=== PATIENT | female | born 1950 | race Caucasian/White ===

== ENCOUNTER → 2017-02-26 | Outpatient (CLI) | payer MEDICARE, BC ==
[~2017-02-26] MED LIST: ACET-1757 PO; ALBU1.25 NEB; ALPR-475 PO; ASPI-496 PO; ATEN25TA PO; AZIT-14 PO; AZIT500T4 PO; BACL-19 PO; BUPR1FIL PO; BUSP10TA PO; CEFD300C2 PO; CEPH-368 PO; CLON1TAB PO; DEXT10TA7 PO; DIVA250T6 PO; DULO60CA7 PO; ENOX40SY4 SQ; ESCI10TA PO; FLUT1DIS3 INH; GABA-827 PO; GABA300C10 PO; GABA600T2 PO; GUAI600T53 PO; HYDR-3138 PO; HYDR-3144 PO; HYDR40TA PO; HYDR50CA PO; HYDR50TA13 PO; LEVO750T6 PO; METH-356 PO; METO25TA35 PO; METR500T PO; METR500T4 PO; MONT10TA9 PO; MORP15TA39 PO; MORP30CA15 PO; NAPR250T PO; NICO1PAT4 TD; OLAN2.5T5 PO; OMEP-110 PO; OMEP20CA9 PO; ONDA4TAB7 PO; OXYC-302 PO; PARO20TA55 PO; PHOS250T3 PO; POLY17PO5 PO; PRED10TA PO; PROP20TA PO; RISP0.5T3 PO; RISP1TAB3 PO; RISP1TAB45 PO; RISP2TAB PO; SERT50TA PO; SERT50TA5 PO; SIMV20TA PO; SULF1TAB24 PO; SULF1TAB3 PO; TRAM-28 PO; TRAZ50TA18 PO
[2017-02-26 14:36] LABS: HEMOGLOBIN 15.9 g/dL (11.7-16.4)
[2017-02-26 14:46] LABS: ASPARTATE AMINO TRANSFERASE 20 U/L (15-37); BLOOD UREA NITROGEN 18 mg/dL (7-18)
[2017-02-26 14:56] LABS: C-REACTIVE PROTEIN, QUANT 0.02 mg/dL (0.02-0.49)
[2017-02-27 12:00] LABS: RHEUMATOID FACTOR SCREEN POSITIVE (NEGATIVE)
[2017-02-27 15:01] LABS: ANA SCREEN POSITIVE (Negative)
== END | disposition home or self-care (01) ==
LOC: CFH 13:30
PROVIDERS: ATTEND Family Medicine
DX: M79.89 Other specified soft tissue disorders (principal); R63.5 Abnormal weight gain; R60.9 Edema, unspecified
CPT/HCPCS: 36415; 80053; 84439; 84443; 84480; 85025; 85651; 86038; 86039; 86140; 86430; 86431

== ENCOUNTER 2017-04-06 15:14 | Inpatient (IN) | payer MEDICARE, BC ==
[~2017-04-06] VITALS: Ht 157.5 cm; Wt 97.1 kg
[~2017-04-06 15:14] MED LIST changes: -AZIT-14 PO; +AZIT250T89 PO; -AZIT500T4 PO; +AZIT500T77 PO; -CEFD300C2 PO; +CEFD300C37 PO
[2017-04-06] MEDS ORDERED: SODIUM CHLORIDE 0.9% 1,000 ML IV ONE ×2 (15:26→17:13)
[2017-04-06] MEDS ORDERED: ONDANSETRON 2MG/ML, 2ML IVPush ONE (15:30)
[2017-04-06] MEDS ORDERED: SODIUM CHLORIDE FLUSH 10ML SYR IVF ONE (15:30)
[2017-04-06] MEDS ORDERED: HYDROmorphone 1 MG/ML, 1ML ONE ×2 (15:42→16:23)
[2017-04-06] MEDS ORDERED: ONDANSETRON 2MG/ML, 2ML ONE (15:42)
[2017-04-06] MEDS: HYDROmorphone 1 MG/ML, 1ML IVPush PRN ×2 (15:48→17:05)
[2017-04-06] MEDS ORDERED: PLEASE ENTER HEIGHT AND WEIGHT MC SCH (16:00)
[2017-04-06 16:28] LABS: ASPARTATE AMINO TRANSFERASE 23 U/L (15-37); BLOOD UREA NITROGEN 15 mg/dL (7-18)
[2017-04-06] MEDS ORDERED: OXCA600T PO (16:36)
[2017-04-06] MEDS ORDERED: PRED2.5T PO (16:36)
[2017-04-06] MEDS ORDERED: GABA300C10 PO (16:36)
[2017-04-06] MEDS ORDERED: ZALE10CA PO (16:36)
[2017-04-06 16:51] LABS: IS PT STATUS REG ER OR PRE ER? YES
[2017-04-06] MEDS ORDERED: LORazepam 2 MG/ML, 1ML ONE (17:13)
[2017-04-06] MEDS ORDERED: LORazepam 2 MG/ML, 1ML IVPush ONE (17:30)
[2017-04-06] MEDS ORDERED: CEFTRIAXONE 1,000 MG in SODIUM CHLORIDE 0.9% 50 ML IVPB ONE (17:30)
[2017-04-06] MEDS ORDERED: SODIUM CHLORIDE FLUSH 10ML SYR IVF PRN (17:30)
[2017-04-06] MEDS ORDERED: HYDROcodone/APAP 10/325 MG TABLET PO PRN (18:00)
[2017-04-06] MEDS ORDERED: BISACODYL 10 MG SUPP PR PRN (18:30)
[2017-04-06] MEDS ORDERED: POLYETHYLENE GLYCOL 17 GM PACKET PO PRN (18:30)
[2017-04-06] MEDS ORDERED: ONDANSETRON 2MG/ML, 2ML IVPush PRN (18:30)
[2017-04-06] MEDS: SODIUM CHLORIDE 0.9% 1,000 ML IV SCH (18:53)
[2017-04-06 19:07] VITALS: BP 179/145
[2017-04-06 19:12] VITALS: BP 170/120
[2017-04-06] MEDS ORDERED: LABETALOL 5MG/ML, 20ML IVPush STA (19:21)
[2017-04-06] MEDS: HEPARIN 5,000 UNITS/ML, 1ML SQ SCH (19:56)
[2017-04-06] MEDS: NICOTINE 7 MG/24 HR PATCH.TD24 TD SCH (19:57)
[2017-04-06] MEDS: AZITHROMYCIN 500 MG in SODIUM CHLORIDE 0.9% 250 ML IV SCH (19:57)
[2017-04-06 20:05] VITALS: BP 136/80
[2017-04-06] MEDS ORDERED: LABETALOL 5MG/ML, 20ML IVPush PRN (20:30)
[2017-04-06] MEDS: hydrOXyzine 50MG TABLET PO SCH (21:00)
[2017-04-06] MEDS: GABAPENTIN 300 MG CAPSULE PO SCH (21:04)
[2017-04-06] MEDS: BUSPIRONE 10 MG TABLET PO SCH (21:05)
[2017-04-06] MEDS: SIMVASTATIN 20 MG TABLET PO SCH (21:05)
[2017-04-06] MEDS: OXCARBAZEPINE 150 MG TABLET PO SCH (21:06)
[2017-04-07 01:00] VITALS: BP 147/84
[2017-04-07] MEDS ORDERED: HYDROcodone/APAP 5/325 TABLET PO PRN (01:00)
[2017-04-07] MEDS: HYDROcodone/APAP 10/325 MG TABLET PO PRN ×3 (02:58→19:51)
[2017-04-07] MEDS: ASPIRIN 81 MG TABLET EC PO SCH (05:13)
[2017-04-07] MEDS: hydrOXyzine 50MG TABLET PO SCH ×4 (05:13→19:50)
[2017-04-07] MEDS: HEPARIN 5,000 UNITS/ML, 1ML SQ SCH ×3 (05:13→19:50)
[2017-04-07] MEDS: SODIUM CHLORIDE 0.9% 1,000 ML IV SCH ×2 (05:14→14:03)
[2017-04-07 05:23] LABS: BLOOD UREA NITROGEN 12 mg/dL (7-18)
[2017-04-07 05:28] LABS: ASPARTATE AMINO TRANSFERASE 26 U/L (15-37)
[2017-04-07 07:57] VITALS: BP 144/85
[2017-04-07] MEDS: BUSPIRONE 10 MG TABLET PO SCH ×3 (09:49→19:52)
[2017-04-07] MEDS: GABAPENTIN 300 MG CAPSULE PO SCH ×2 (09:49→19:52)
[2017-04-07] MEDS: OXCARBAZEPINE 150 MG TABLET PO SCH ×2 (09:50→19:51)
[2017-04-07] MEDS: SENNA/DOCUSATE TABLET PO SCH (09:50)
[2017-04-07 14:00] VITALS: BP 147/84
[2017-04-07] MEDS ORDERED: CEFTRIAXONE 1,000 MG in SODIUM CHLORIDE 0.9% 50 ML IV SCH (17:30)
[2017-04-07] MEDS: NICOTINE 7 MG/24 HR PATCH.TD24 TD SCH (17:33)
[2017-04-07] MEDS: ACETAMINOPHEN 325 MG TABLET PO PRN (17:33)
[2017-04-07 19:44] VITALS: BP 137/82
[2017-04-07] MEDS: AZITHROMYCIN 500 MG in SODIUM CHLORIDE 0.9% 250 ML IV SCH (19:50)
[2017-04-07] MEDS: SIMVASTATIN 20 MG TABLET PO SCH (19:52)
[2017-04-08] MEDS: SODIUM CHLORIDE 0.9% 1,000 ML IV SCH (00:03)
[2017-04-08] MEDS: HYDROcodone/APAP 10/325 MG TABLET PO PRN ×3 (00:03→19:55)
[2017-04-08 01:36] VITALS: BP 147/83
[2017-04-08] MEDS: ACETAMINOPHEN 325 MG TABLET PO PRN (02:35)
[2017-04-08] MEDS: ZOLPIDEM 5MG TABLET PO PRN (03:13)
[2017-04-08] MEDS: HEPARIN 5,000 UNITS/ML, 1ML SQ SCH ×3 (05:35→19:53)
[2017-04-08] MEDS: hydrOXyzine 50MG TABLET PO SCH ×4 (05:35→19:55)
[2017-04-08] MEDS: ASPIRIN 81 MG TABLET EC PO SCH (05:35)
[2017-04-08 07:35] VITALS: BP 153/88
[2017-04-08] MEDS: OXCARBAZEPINE 150 MG TABLET PO SCH ×2 (08:18→19:54)
[2017-04-08] MEDS: BUSPIRONE 10 MG TABLET PO SCH ×3 (08:18→19:54)
[2017-04-08] MEDS: GABAPENTIN 300 MG CAPSULE PO SCH ×2 (08:18→19:54)
[2017-04-08] MEDS: SENNA/DOCUSATE TABLET PO SCH (08:18)
[2017-04-08 13:34] VITALS: BP 140/81
[2017-04-08] MEDS ORDERED: CEFTRIAXONE 1,000 MG in SODIUM CHLORIDE 0.9% 100 ML IV SCH (14:40)
[2017-04-08] MEDS: NICOTINE 7 MG/24 HR PATCH.TD24 TD SCH (17:16)
[2017-04-08 19:22] VITALS: BP 149/86
[2017-04-08] MEDS: AZITHROMYCIN 500 MG in SODIUM CHLORIDE 0.9% 250 ML IV SCH (19:53)
[2017-04-08] MEDS: SIMVASTATIN 20 MG TABLET PO SCH (19:54)
[2017-04-09 01:26] VITALS: BP 132/84
[2017-04-09] MEDS: ACETAMINOPHEN 325 MG TABLET PO PRN ×2 (03:32→09:17)
[2017-04-09] MEDS: ZOLPIDEM 5MG TABLET PO PRN (03:32)
[2017-04-09] MEDS: HEPARIN 5,000 UNITS/ML, 1ML SQ SCH ×2 (03:32→12:00)
[2017-04-09] MEDS: hydrOXyzine 50MG TABLET PO SCH ×2 (04:52→11:16)
[2017-04-09] MEDS: HYDROcodone/APAP 10/325 MG TABLET PO PRN ×2 (04:52→11:16)
[2017-04-09] MEDS: ASPIRIN 81 MG TABLET EC PO SCH (04:52)
[2017-04-09 05:26] LABS: ASPARTATE AMINO TRANSFERASE 26 U/L (15-37); BLOOD UREA NITROGEN 6 mg/dL (7-18)
[2017-04-09] MEDS ORDERED: OMEPRAZOLE 20 MG CAPSULE.DR PO SCH (09:00)
[2017-04-09 09:03] VITALS: BP 135/82
[2017-04-09] MEDS: OXCARBAZEPINE 150 MG TABLET PO SCH (09:13)
[2017-04-09] MEDS: BUSPIRONE 10 MG TABLET PO SCH (09:13)
[2017-04-09] MEDS: SENNA/DOCUSATE TABLET PO SCH (09:13)
[2017-04-09] MEDS: GABAPENTIN 300 MG CAPSULE PO SCH (09:13)
[2017-04-09] MEDS ORDERED: LORazepam 1MG TABLET PO PRN (11:00)
[2017-04-09] MEDS ORDERED: CEFD300C37 PO (11:37)
[2017-04-09] MEDS ORDERED: LORA-446 PO (11:37)
[2017-04-09] MEDS ORDERED: AZIT500T77 PO (11:37)
[2017-04-09 14:00] VITALS: BP 129/79
== END 2017-04-09 16:16 | disposition home health service (06) | DRG 602 ==
LOC: ED 16:39 → EDIP 17:47 → 3NW 18:15
DX: L03.115 Cellulitis of right lower limb (principal); J18.9 Pneumonia, unspecified organism; F11.20 Opioid dependence, uncomplicated; E44.1 Mild protein-calorie malnutrition; E87.2 Acidosis; N39.0 Urinary tract infection, site not specified; D84.8 Other specified immunodeficiencies; B19.20 Unspecified viral hepatitis C without hepatic coma; E78.5 Hyperlipidemia, unspecified; F17.200 Nicotine dependence, unspecified, uncomplicated; F32.9 Major depressive disorder, single episode, unspecified; F41.9 Anxiety disorder, unspecified; G20 Parkinson's disease; G89.29 Other chronic pain; I10 Essential (primary) hypertension; K21.9 Gastro-esophageal reflux disease without esophagitis; M06.9 Rheumatoid arthritis, unspecified; F99 Mental disorder, not otherwise specified; R00.0 Tachycardia, unspecified; W18.39XA Other fall on same level, initial encounter; M79.7 Fibromyalgia; S09.90XA Unspecified injury of head, initial encounter; Z86.73 Personal history of transient ischemic attack (TIA), and cerebral infarction without residual deficits; Z95.0 Presence of cardiac pacemaker; Z98.51 Tubal ligation status; Y93.89 Activity, other specified; Y92.098 Other place in other non-institutional residence as the place of occurrence of the external cause; Y99.8 Other external cause status; Z68.39 Body mass index [BMI] 39.0-39.9, adult
CPT/HCPCS: 36415; 70450; 71010; 72125; 80053; 81001; 83605; 84443; 84484; 85025; 85610; 85730; 87040; 87086; 93005; 93922; 96361; 96365; 96375; 96376; J0456; J0696; J1170; J1644; J2405; J2060; J7030; J7050; J7512

== ENCOUNTER 2017-04-17 18:49 | Inpatient (IN) | payer MEDICARE, BC ==
[~2017-04-17] VITALS: Ht 157.5 cm; Wt 85.4 kg
[~2017-04-17 18:49] MED LIST changes: +LORA-446 PO; +OXCA600T PO; +PRED2.5T PO; +ZALE10CA PO
[2017-04-17] MEDS ORDERED: SODIUM CHLORIDE FLUSH 10ML SYR IVF ONE (19:00)
[2017-04-17 19:53] LABS: ASPARTATE AMINO TRANSFERASE 21 U/L (15-37); BLOOD UREA NITROGEN 8 mg/dL (7-18)
[2017-04-17] MEDS ORDERED: ACETAMINOPHEN 325 MG TABLET ONE (20:02)
[2017-04-17 20:28] LABS: IS PT STATUS REG ER OR PRE ER? YES
[2017-04-17] MEDS ORDERED: ACETAMINOPHEN 325 MG TABLET PO ONE (20:30)
[2017-04-17] MEDS ORDERED: SODIUM CHLORIDE 0.9%, 500ML IVBOLUS ONE (20:30)
[2017-04-17] MEDS ORDERED: LORazepam 1MG TABLET PO ONE (22:00)
[2017-04-17] MEDS ORDERED: LORazepam 1MG TABLET ONE (22:01)
[2017-04-18] MEDS ORDERED: hydrOXyzine 50MG TABLET PO PRN (00:30)
[2017-04-18] MEDS ORDERED: HYDROcodone/APAP 10/325 MG TABLET PO PRN (00:30)
[2017-04-18 00:35] VITALS: BP 153/96
[2017-04-18] MEDS: SODIUM CHLORIDE 0.9% 1,000 ML IV SCH ×3 (01:25→22:35)
[2017-04-18] MEDS: LACTOBACILLUS CHEW TABLET PO SCH ×4 (01:26→22:36)
[2017-04-18] MEDS: CEFTRIAXONE 1,000 MG in SODIUM CHLORIDE 0.9% 50 ML IV SCH ×2 (01:26→12:30)
[2017-04-18 01:59] VITALS: BP 153/96
[2017-04-18] MEDS: OMEPRAZOLE 20 MG CAPSULE.DR PO SCH (07:43)
[2017-04-18] MEDS: DOXYCYCLINE 100MG TABLET PO SCH ×2 (07:43→22:35)
[2017-04-18] MEDS: BUSPIRONE 10 MG TABLET PO SCH ×3 (07:43→22:36)
[2017-04-18] MEDS: GABAPENTIN 300 MG CAPSULE PO SCH ×2 (07:43→22:37)
[2017-04-18] MEDS: OXCARBAZEPINE 150 MG TABLET PO SCH ×2 (07:43→22:37)
[2017-04-18] MEDS: TEMPLATE NON-FORMULARY MED. (Zaleplon** 10 MG) HOMEMEDPO SCH (07:43)
[2017-04-18] MEDS: LORazepam 1MG TABLET PO PRN ×3 (07:43→23:34)
[2017-04-18] MEDS: ENOXAPARIN 40 MG/0.4 ML SQ SCH (07:46)
[2017-04-18 08:30] VITALS: BP 155/84
[2017-04-18] MEDS: HYDROcodone/APAP 10/325 MG TABLET PO PRN ×3 (11:45→18:30)
[2017-04-18 14:30] VITALS: BP 142/80
[2017-04-18 19:30] VITALS: BP 154/85
[2017-04-18] MEDS ORDERED: SIMVASTATIN 20 MG TABLET PO SCH (21:00)
[2017-04-19 00:15] VITALS: BP 142/88
[2017-04-19] MEDS: CEFTRIAXONE 1,000 MG in SODIUM CHLORIDE 0.9% 50 ML IV SCH (00:40)
[2017-04-19 04:43] LABS: BLOOD UREA NITROGEN 3 mg/dL (7-18)
[2017-04-19] MEDS: SODIUM CHLORIDE 0.9% 1,000 ML IV SCH ×2 (05:03→12:00)
[2017-04-19] MEDS: HYDROcodone/APAP 10/325 MG TABLET PO PRN ×2 (05:08→12:07)
[2017-04-19 07:03] VITALS: BP 124/85
[2017-04-19] MEDS ORDERED: CEFD300C37 PO (08:03)
[2017-04-19] MEDS ORDERED: DOXY100T PO (08:03)
[2017-04-19] MEDS ORDERED: ACID1TAB7 PO (08:03)
[2017-04-19] MEDS: BUSPIRONE 10 MG TABLET PO SCH (08:45)
[2017-04-19] MEDS: TEMPLATE NON-FORMULARY MED. (Zaleplon** 10 MG) HOMEMEDPO SCH (08:45)
[2017-04-19] MEDS: GABAPENTIN 300 MG CAPSULE PO SCH (08:45)
[2017-04-19] MEDS: LACTOBACILLUS CHEW TABLET PO SCH (08:45)
[2017-04-19] MEDS: OMEPRAZOLE 20 MG CAPSULE.DR PO SCH (08:46)
[2017-04-19] MEDS: ENOXAPARIN 40 MG/0.4 ML SQ SCH (08:46)
[2017-04-19] MEDS: DOXYCYCLINE 100MG TABLET PO SCH (08:46)
[2017-04-19] MEDS: OXCARBAZEPINE 150 MG TABLET PO SCH (08:46)
[2017-04-19] MEDS ORDERED: CEFTRIAXONE PMX 1GM/50ML 50 ML IV SCH (12:30)
[2017-04-19 14:12] VITALS: BP 125/80
== END 2017-04-19 15:30 | disposition home or self-care (01) | DRG 393 ==
LOC: ED 21:36 → EDIP 22:07 → 3NE 23:56
PROVIDERS: ADMIT Internal Medicine; ATTEND Internal Medicine
PROC: 0T9B70Z Drainage of Bladder with Drainage Device, Via Natural or Artificial Opening (ICD-10-PCS; principal; 2017-04-17)
DX: K52.1 Toxic gastroenteritis and colitis (principal); J18.9 Pneumonia, unspecified organism; L03.115 Cellulitis of right lower limb; F11.20 Opioid dependence, uncomplicated; F33.9 Major depressive disorder, recurrent, unspecified; B19.20 Unspecified viral hepatitis C without hepatic coma; E78.5 Hyperlipidemia, unspecified; I10 Essential (primary) hypertension; K21.9 Gastro-esophageal reflux disease without esophagitis; M06.9 Rheumatoid arthritis, unspecified; F41.9 Anxiety disorder, unspecified; G89.29 Other chronic pain; R19.7 Diarrhea, unspecified; M79.7 Fibromyalgia; Z91.14 Patient's other noncompliance with medication regimen; Z95.0 Presence of cardiac pacemaker; Z87.440 Personal history of urinary (tract) infections; Z91.89 Other specified personal risk factors, not elsewhere classified; Z98.51 Tubal ligation status; Z82.49 Family history of ischemic heart disease and other diseases of the circulatory system; T36.3X5A Adverse effect of macrolides, initial encounter; T36.1X5A Adverse effect of cephalosporins and other beta-lactam antibiotics, initial encounter
CPT/HCPCS: 36415; 71010; 80048; 80053; 81001; 83605; 84145; 84439; 84443; 84484; 85025; 85610; 85730; 87040; 87086; 93005; 96360; 96361; J0696; J1650; J7030; J7040; J7512

== ENCOUNTER → 2017-04-30 | Outpatient (CLI) | payer MEDICARE, BC ==
[~2017-04-30] MED LIST changes: +ACID1TAB7 PO; +DOXY100T PO
== END | disposition home or self-care (01) ==
LOC: RAD 16:28
PROVIDERS: ATTEND Family Medicine
DX: Z02.9 Encounter for administrative examinations, unspecified (principal)

== ENCOUNTER 2017-12-03 15:27 | Emergency (ER) | payer MEDICARE, BC ==
[~2017-12-03] VITALS: Ht 157.5 cm; Wt 64.0 kg
[~2017-12-03 15:27] MED LIST changes: +AZIT500T5 PO; -AZIT500T77 PO; -GUAI600T53 PO; +GUAI600T80 PO; -HYDR-3138 PO; -HYDR-3144 PO; +HYDR-3237 PO; +HYDR-3245 PO; -METR500T4 PO; +METR500T8 PO; +MORP-52 PO; -MORP15TA39 PO; +NICO-486 TD; -NICO1PAT4 TD; +OLAN2.5T10 PO; -OLAN2.5T5 PO; -PARO20TA55 PO; +PARO20TA98 PO; +SULF-169 PO; -SULF1TAB3 PO; -TRAM-28 PO; +TRAM-47 PO
[2017-12-03] MEDS ORDERED: SODIUM CHLORIDE FLUSH 10ML SYR IVF ONE (16:00)
[2017-12-03 16:22] LABS: BASOPHILS # (AUTO) 0.02 x10^3/uL (0-0.1); BASOPHILS % (AUTO) 0 % (0-1); EOSINOPHILS # (AUTO) 0.07 x10^3/uL (0-0.4); EOSINOPHILS % (AUTO) 1 % (1-7); INTERNATIONAL NORMALIZED RATIO 1.02 (0.93-1.1); LYMPHOCYTES # (AUTO) 1.66 x10^3/uL (1-3.4); LYMPHOCYTES % (AUTO) 32 % (22-44); MD NO; MEAN CORPUSCULAR HGB CONC 33.1 g/dL (32.4-35.8); MEAN CORPUSCULAR VOLUME 87.7 fL (80-100); MEAN PLATELET VOLUME 8.5 fL (7.4-10.4); MONOCYTES # (AUTO) 0.59 x10^3/uL (0.2-0.8); MONOCYTES % (AUTO) 12 % (2-9); NEUTROPHILS # (AUTO) 2.83 x10^3/uL (1.8-6.8); NEUTROPHILS % (AUTO) 55 % (42-75); PLATELET COUNT 146 x10^3/uL (130-400); PROTHROMBIN TIME 10.6 Seconds (9.6-11.5); RED BLOOD COUNT 4.62 x10^6/uL (3.82-5.3)
[2017-12-03 16:26] LABS: ALANINE AMINOTRANSFERASE 22 U/L (12-78); ALBUMIN 3.2 g/dL (3.4-5.0); ANION GAP 9 mmol/L (5-15); CALCIUM 8.2 mg/dL (8.5-10.1); CHLORIDE 112 mmol/L (98-107); CREATININE 0.46 mg/dL (0.55-1.02)
[2017-12-03 16:28] LABS: ALKALINE PHOSPHATASE 141 U/L (45-117); BILIRUBIN,TOTAL 0.4 mg/dL (0.2-1.0); TOTAL PROTEIN 5.7 g/dL (6.4-8.2)
[2017-12-03 16:41] VITALS: BP 113/50
[2017-12-03] MEDS ORDERED: CEPHALEXIN 500 MG CAPSULE PO ONE (17:30)
[2017-12-03] MEDS ORDERED: CEPHALEXIN 500 MG CAPSULE ONE (17:45)
== END 2017-12-03 18:00 | disposition home or self-care (01) ==
LOC: ED 17:54
DX: L03.115 Cellulitis of right lower limb (principal); F32.9 Major depressive disorder, single episode, unspecified; E78.5 Hyperlipidemia, unspecified; I10 Essential (primary) hypertension; M79.7 Fibromyalgia; K21.9 Gastro-esophageal reflux disease without esophagitis
CPT/HCPCS: 36415; 80053; 85025; 85610; 85730; 99285

== ENCOUNTER → 2017-12-11 | Outpatient (CLI) | payer MEDICARE, BC ==
[~2017-12-11] MED LIST changes: +CLON0.3T47 PO; +MORP1VIA2 PO; +PREG300C PO; +RISP3TAB3 PO; +ZOLP10TA PO
== END | disposition home or self-care (01) ==
LOC: CFH 16:06
PROVIDERS: ATTEND Family Medicine
DX: I87.2 Venous insufficiency (chronic) (peripheral) (principal); M79.604 Pain in right leg; R60.0 Localized edema; M25.561 Pain in right knee; M17.9 Osteoarthritis of knee, unspecified

== ENCOUNTER 2017-12-18 10:29 | Emergency (ER) | payer MEDICARE, BC ==
[~2017-12-18] VITALS: Ht 157.5 cm; Wt 77.3 kg
[~2017-12-18 10:29] MED LIST changes: -CLON0.3T47 PO; -MORP1VIA2 PO; -PREG300C PO; -RISP3TAB3 PO; -ZOLP10TA PO
[2017-12-18] MEDS ORDERED: SODIUM CHLORIDE FLUSH 10ML SYR IVF ONE (11:30)
[2017-12-18] MEDS ORDERED: SODIUM CHLORIDE 0.9% 1,000ML IVBOLUS ONE (11:30)
[2017-12-18 11:42] LABS: BASOPHILS # (AUTO) 0.02 x10^3/uL (0-0.1); BASOPHILS % (AUTO) 0 % (0-1); EOSINOPHILS # (AUTO) 0.04 x10^3/uL (0-0.4); EOSINOPHILS % (AUTO) 1 % (1-7); LYMPHOCYTES # (AUTO) 1.27 x10^3/uL (1-3.4); LYMPHOCYTES % (AUTO) 27 % (22-44); MD NO; MEAN CORPUSCULAR HEMOGLOBIN 29.1 pg (27.0-34.8); MEAN CORPUSCULAR HGB CONC 33.4 g/dL (32.4-35.8); MEAN CORPUSCULAR VOLUME 87.1 fL (80-100); MEAN PLATELET VOLUME 8.3 fL (7.4-10.4); MONOCYTES # (AUTO) 0.69 x10^3/uL (0.2-0.8); MONOCYTES % (AUTO) 15 % (2-9); NEUTROPHILS # (AUTO) 2.69 x10^3/uL (1.8-6.8); NEUTROPHILS % (AUTO) 57 % (42-75); PLATELET COUNT 212 x10^3/uL (130-400); RED BLOOD COUNT 4.75 x10^6/uL (3.82-5.3); RED CELL DISTRIBUTION WIDTH 12.8 % (9.6-15.2)
[2017-12-18] MEDS ORDERED: RISP3TAB3 PO (11:47)
[2017-12-18] MEDS ORDERED: CLON0.3T47 PO (11:47)
[2017-12-18] MEDS ORDERED: PREG300C PO (11:47)
[2017-12-18] MEDS ORDERED: MORP1VIA2 PO (11:47)
[2017-12-18] MEDS ORDERED: ZOLP10TA PO (11:47)
[2017-12-18 12:25] LABS: CALCIUM 8.5 mg/dL (8.5-10.1); CHLORIDE 106 mmol/L (98-107)
[2017-12-18 12:27] LABS: ALBUMIN 3.5 g/dL (3.4-5.0); ANION GAP 11 mmol/L (5-15)
[2017-12-18 12:27] LABS: CULTURE INDICATED? YES; MICROSCOPIC INDICATED
[2017-12-18 12:30] LABS: ALANINE AMINOTRANSFERASE 18 U/L (12-78); ALKALINE PHOSPHATASE 135 U/L (45-117); BILIRUBIN,TOTAL 0.9 mg/dL (0.2-1.0); CREATININE 0.48 mg/dL (0.55-1.02); TOTAL PROTEIN 5.9 g/dL (6.4-8.2)
[2017-12-18 12:38] LABS: AMPHETAMINE SCREEN, URINE Negative (Negative); BARBITURATE SCREEN, URINE Negative (Negative); BENZODIAZEPINE SCREEN, URINE Negative (Negative); CANNABINOID SCREEN, URINE Negative (Negative); COCAINE SCREEN, URINE Negative (Negative); METHADONE SCREEN, URINE Negative (Negative); OPIATE SCREEN, URINE Positive (Negative)
[2017-12-18 14:03] VITALS: BP 142/95
== END 2017-12-18 15:19 | disposition home or self-care (01) ==
LOC: ED 11:17
DX: R44.0 Auditory hallucinations (principal); R44.1 Visual hallucinations; I10 Essential (primary) hypertension; K21.9 Gastro-esophageal reflux disease without esophagitis; E78.5 Hyperlipidemia, unspecified; F17.210 Nicotine dependence, cigarettes, uncomplicated; J45.909 Unspecified asthma, uncomplicated; Z79.1 Long term (current) use of non-steroidal anti-inflammatories (NSAID)
CPT/HCPCS: 36415; 70450; 80053; 80307; 81001; 82140; 85025; 87086; 93005; 96360; 99285; J7030

== ENCOUNTER 2018-05-19 14:37 | Emergency (ER) | payer MEDICARE, BC ==
[~2018-05-19] VITALS: Ht 157.5 cm; Wt 68.5 kg
[~2018-05-19 14:37] MED LIST changes: +CLON0.3T47 PO; +MORP1VIA2 PO; +PREG300C PO; -RISP2TAB PO; +RISP2TAB11 PO; +RISP3TAB3 PO; +ZOLP10TA PO
[2018-05-19 16:00] LABS: BASOPHILS # (AUTO) 0.03 x10^3/uL (0-0.1); BASOPHILS % (AUTO) 1 % (0-1); EOSINOPHILS # (AUTO) 0.02 x10^3/uL (0-0.4); EOSINOPHILS % (AUTO) 1 % (1-7); LYMPHOCYTES # (AUTO) 1.44 x10^3/uL (1-3.4); LYMPHOCYTES % (AUTO) 29 % (22-44); MD NO; MEAN CORPUSCULAR HEMOGLOBIN 28.9 pg (27.0-34.8); MEAN CORPUSCULAR HGB CONC 33.6 g/dL (32.4-35.8); MEAN CORPUSCULAR VOLUME 85.8 fL (80-100); MEAN PLATELET VOLUME 7.8 fL (7.4-10.4); MONOCYTES # (AUTO) 0.48 x10^3/uL (0.2-0.8); MONOCYTES % (AUTO) 10 % (2-9); NEUTROPHILS # (AUTO) 2.94 x10^3/uL (1.8-6.8); NEUTROPHILS % (AUTO) 60 % (42-75); PLATELET COUNT 201 x10^3/uL (130-400); RED BLOOD COUNT 4.99 x10^6/uL (3.82-5.3); RED CELL DISTRIBUTION WIDTH 13.7 % (9.6-15.2)
[2018-05-19 16:02] LABS: CULTURE INDICATED? YES; MICROSCOPIC INDICATED
[2018-05-19 16:04] VITALS: BP 131/57
[2018-05-19 16:09] LABS: ANION GAP 10 mmol/L (5-15); CALCIUM 8.5 mg/dL (8.5-10.1); CHLORIDE 103 mmol/L (98-107); CREATININE 0.54 mg/dL (0.55-1.02)
== END 2018-05-19 16:59 | disposition home or self-care (01) ==
LOC: ED 16:37
DX: R33.9 Retention of urine, unspecified (principal); R32 Unspecified urinary incontinence; I10 Essential (primary) hypertension; F32.9 Major depressive disorder, single episode, unspecified; K21.9 Gastro-esophageal reflux disease without esophagitis; E78.5 Hyperlipidemia, unspecified
CPT/HCPCS: 36415; 80048; 81001; 85025; 87077; 87086; 87186; 99284; 99285

== ENCOUNTER → 2018-10-21 | Outpatient (CLI) | payer MEDICARE, BC ==
[~2018-10-21] MED LIST changes: +DIVA-59 PO; -DIVA250T6 PO; +METR-142 PO; -METR500T8 PO; -OXCA600T PO; +OXCA600T10 PO; +SUVO20TA PO; -TRAZ50TA18 PO; +TRAZ50TA66 PO
== END | disposition home or self-care (01) ==
LOC: CFH 16:33
PROVIDERS: ATTEND Family Medicine
DX: S42.91XA Fracture of right shoulder girdle, part unspecified, initial encounter for closed fracture (principal); X58.XXXA Exposure to other specified factors, initial encounter; Y93.89 Activity, other specified; Y92.89 Other specified places as the place of occurrence of the external cause; Y99.8 Other external cause status

== ENCOUNTER 2019-01-17 11:02 | Emergency (ER) | payer MEDICARE, BC ==
[~2019-01-17] VITALS: Ht 157.5 cm; Wt 68.0 kg
[~2019-01-17 11:02] MED LIST changes: -GABA600T2 PO; +GABA600T7 PO; -METH-356 PO; +METH10TA2 PO; -METR-142 PO; +METR-90 PO; +SERT50TA28 PO; -SERT50TA5 PO
[2019-01-17 11:06] VITALS: BP 129/63
[2019-01-17 11:47] LABS: BASOPHILS # (AUTO) 0.02 x10^3/uL (0-0.1); BASOPHILS % (AUTO) 0 % (0-1); EOSINOPHILS # (AUTO) 0.05 x10^3/uL (0-0.4); EOSINOPHILS % (AUTO) 1 % (1-7); LYMPHOCYTES # (AUTO) 1.56 x10^3/uL (1-3.4); LYMPHOCYTES % (AUTO) 23 % (22-44); MD NO; MEAN CORPUSCULAR HEMOGLOBIN 29.3 pg (27.0-34.8); MEAN CORPUSCULAR HGB CONC 33.7 g/dL (32.4-35.8); MEAN PLATELET VOLUME 7.7 fL (7.4-10.4); MONOCYTES # (AUTO) 0.53 x10^3/uL (0.2-0.8); MONOCYTES % (AUTO) 8 % (2-9); NEUTROPHILS # (AUTO) 4.63 x10^3/uL (1.8-6.8); NEUTROPHILS % (AUTO) 68 % (42-75); PLATELET COUNT 191 x10^3/uL (130-400); RED BLOOD COUNT 4.93 x10^6/uL (3.82-5.3); RED CELL DISTRIBUTION WIDTH 12.6 % (9.6-15.2)
[2019-01-17 11:55] LABS: RAPID INFLUENZA A Negative (Negative); RAPID INFLUENZA B Negative (Negative)
[2019-01-17 11:59] LABS: ALBUMIN 3.6 g/dL (3.4-5.0); ANION GAP 5 mmol/L (5-15); CALCIUM 8.5 mg/dL (8.5-10.1); CHLORIDE 109 mmol/L (98-107); CREATININE 0.49 mg/dL (0.55-1.02)
== END 2019-01-17 12:33 | disposition home or self-care (01) ==
LOC: ED 12:28
DX: J98.11 Atelectasis (principal); J20.8 Acute bronchitis due to other specified organisms; E78.5 Hyperlipidemia, unspecified; K21.9 Gastro-esophageal reflux disease without esophagitis; I10 Essential (primary) hypertension; F32.9 Major depressive disorder, single episode, unspecified; Z72.9 Problem related to lifestyle, unspecified; F17.200 Nicotine dependence, unspecified, uncomplicated
CPT/HCPCS: 36415; 71046; 80048; 82040; 83605; 85025; 87400; 99284

== ENCOUNTER → 2019-09-09 | Outpatient (CLI) | payer MEDICARE, BC ==
[~2019-09-09] MED LIST changes: -ACET-1757 PO; +ACET-2065 PO; -ALPR-475 PO; +ALPR0.5T7 PO; +AZIT500T10 PO; -AZIT500T5 PO
== END | disposition home or self-care (01) ==
LOC: CFH 14:44
PROVIDERS: ATTEND Internal Medicine Cardiovascular Disease
DX: I07.1 Rheumatic tricuspid insufficiency (principal); I48.0 Paroxysmal atrial fibrillation; E78.5 Hyperlipidemia, unspecified
CPT/HCPCS: 93306